=== PATIENT | female | born 1990 | race Hispanic/Latino ===

== ENCOUNTER 2021-07-01 20:28 | Emergency (ER) | payer OTHER ==
[~2021-07-01] VITALS: Ht 154.9 cm; Wt 54.4 kg
[2021-07-01] MEDS ORDERED: SODIUM CHLORIDE 0.9% 1000ML 1,000 ML IV STA (21:05)
[2021-07-01] MEDS ORDERED: ONDANSETRON HCL INJ 2MG/ML 2ML 2 MG/ML VIAL IV STA (21:05)
[2021-07-01] MEDS ORDERED: Morphine 4mg Syringe 4 MG/ML INJ IV ONE (21:45)
[2021-07-01] MEDS ORDERED: ONDANSETRON HCL INJ 2MG/ML 2ML 2 MG/ML VIAL ONE (22:02)
[2021-07-01] MEDS ORDERED: Morphine 4mg Syringe 4 MG/ML INJ ONE (22:03)
[2021-07-01] MEDS ORDERED: SODIUM CHLORIDE 0.9% 1000ML 1,000 ML ONE (22:03)
[2021-07-01] MEDS ORDERED: SODIUM CHLORIDE 0.9% 50ML 50 ML ONE (22:15)
[2021-07-01] MEDS ORDERED: IOPAMIDOL 370 MG/ML 200 ML INFUS..BTL INJ ONE (22:15)
[2021-07-01] MEDS ORDERED: CIPROFLOXACIN 500 MG TAB PO STA (23:05)
[2021-07-01] MEDS ORDERED: METRONIDAZOLE 500 MG TAB PO STA (23:05)
[2021-07-01] MEDS ORDERED: ACETAMINOPHEN-1 EAC4 PO (23:09)
[2021-07-01] MEDS ORDERED: METRONIDAZOLE500 MG PO (23:09)
[2021-07-01] MEDS ORDERED: ONDANSETRON ODT4 MG PO (23:09)
[2021-07-01] MEDS ORDERED: CIPRO500 MG PO (23:09)
[2021-07-01] MEDS ORDERED: CIPROFLOXACIN 500 MG TAB ONE (23:40)
== END 2021-07-01 23:39 | disposition home or self-care (01) ==
LOC: FSED 20:43
DX: K52.9 Noninfective gastroenteritis and colitis, unspecified (principal)
CPT/HCPCS: 74177; 99284; J2270; J2405; J7030; Q9967